=== PATIENT | female | born 1950 | race Caucasian/White ===

== ENCOUNTER → 2017-06-03 | Outpatient (CLI) | payer OTHER ==
[~2017-06-03] MED LIST: ALPR0.5T3 PO; ALPR1 PO; CALC250 PO; CHOL1CAP34 PO; ERGO50000 PO; GLIM4 PO; GLIM4TAB PO; LEVEMIR SQ; LEXA20TA PO; MELA1TAB18 PO; METF-324 PO; METF1000 PO; METO25 PO; METO25TA3 PO; NORC10TA2 PO; PRIS50TA PO; RIVA10 PO; WHEEMIS3; [UNRECOGNIZED DRUG - SUPPLY]
--- NOTE | 2017-06-03 14:17 | RADRPT ---
EXAM DATE/TIME: 06/03/2017 13:52 [facility] COMPARISON: CHEST SINGLE AP, November 06, 2015, 20:42. INDICATIONS : Evaluate for pneumonia, pneumothorax and communicable diseases. Pre-op lung biopsy MEDICAL HISTORY : Cervical Cancer SURGICAL HISTORY : Infusaport ENCOUNTER: Initial ACUITY: 1 day PAIN SCORE: 0/10 LOCATION: chest FINDINGS: Left subclavian Zkukkq-h-Helu with tip near the atrial caval junction. PA and lateral views of the est demonstrate the lungs to be symmetrically aerated without evidence of infiltrate or effusion. Red emonstration of 1.3 cm anterior left upper lobe lung mass, best seen on the lateral view. The cardiom ediastinal contours are unremarkable. Osseous structures are intact. CONCLUSION: 1. No acute cardiopulmonary disease. 2. Redemonstration 1.3 cm anterior left upper lobe lung mass. Luis Khan MD on June 03, 2017 at 14:12 Board Certified Radiologist. This report was verified electronically.
--- NOTE | 2017-06-04 14:48 | EKG ---
Date Performed: 06/03/2017 Time Performed: 12:59:32 PTAGE: 66 years EKG: Sinus rhythm NORMAL ECG PREVIOUS TRACING : 11/08/2015 05.14 DOCTOR: Dae Mooney Interpretating Date/Time 06/04/2017 14:48:07
--- NOTE | 2017-06-09 11:08 | RSPPFT ---
DATE OF PROCEDURE: 06/03/17 COMMENTS: Spirometry demonstrates an FEV1 of 1.1 at 44% of predicted, FVC of 2.5 at 80%, FEV1/FVC ratio at 44% and FEF 25-75 is 15%. Flow volume loops suggest an obstructive pattern. IMPRESSION: 1. Moderate to severe obstructive airways disease.
== END ==
LOC: CPRE 12:42
PROVIDERS: ATTEND Thoracic Surgery (Cardiothoracic Vascular Surgery)
DX: Z01.812 Encounter for preprocedural laboratory examination (principal); Z01.810 Encounter for preprocedural cardiovascular examination; C80.1 Malignant (primary) neoplasm, unspecified; R91.8 Other nonspecific abnormal finding of lung field
CPT/HCPCS: 71046; 93005; 94010

== ENCOUNTER 2017-06-10 05:25 | Inpatient (IN) | payer MEDICARE, OTHER ==
[2017-06-10] VITALS (8 sets, daily range): BP systolic 102–117; BP diastolic 53–81; PULSE 88–105; RESP 16–20; TEMP 97.8–98.3; O2SAT 91–99
[~2017-06-10] VITALS: Ht 167.6 cm; Wt 57.0 kg
[~2017-06-10 05:25] MED LIST changes: -ALPR1 PO; -CALC250 PO; -ERGO50000 PO; -GLIM4 PO; -LEXA20TA PO; -MELA1TAB18 PO; -METF-324 PO; -METO25 PO; -NORC10TA2 PO; -RIVA10 PO; -[UNRECOGNIZED DRUG - SUPPLY]
[2017-06-10] MEDS ORDERED: LACTATED RINGER'S 1000 ML IV PRN (05:45)
[2017-06-10] MEDS ORDERED: SODIUM CHLORID 0.9% 500 ML IV PRN (05:45)
[2017-06-10] MEDS ORDERED: CHLORHEXIDINE GLUCONATE 2 % 1 PACK (2 CLOTHS) TOPICAL PRN (05:45)
[2017-06-10] MEDS ORDERED: POVIDONE IODINE 5% (ANTISEPSIS KIT) 4 APPLICATIONS EACH NARE PRN (05:45)
[2017-06-10] MEDS ORDERED: METOPROLOL TARTRATE 25 MG TAB PO PRN (05:45)
[2017-06-10] MEDS ORDERED: MELA1TAB18 PO (06:10)
[2017-06-10] MEDS ORDERED: INSULIN HUMAN REGULAR 1,000 UNITS/10 ML VIAL ONE (06:19)
[2017-06-10] MEDS: INSULIN HUMAN REGULAR 1,000 UNITS/10 ML VIAL SQ PRN ×2 (06:20→11:09)
[2017-06-10] MEDS ORDERED: BUPIVACAINE LIPOSO PF 1.3% INJ 20 ML, DEXAMETHASONE INJ 4 MG, MORPHINE INJ 8 MG in SODI... ONE (07:00)
[2017-06-10] MEDS ORDERED: fentaNYL CITRATE 250 MCG/5 ML AMP ONE (07:08)
[2017-06-10] MEDS ORDERED: ceFAZolin 2 GM PREMIX 50 ML ONE (07:10)
[2017-06-10] MEDS ORDERED: BUPIVACAINE HCL PF 0.5% 30 ML VIAL ONE (07:10)
[2017-06-10] MEDS ORDERED: BUPIVACAINE LIPOSO PF 1.3% INJ 20 ML, DEXAMETHASONE INJ 4 MG, MORPHINE INJ 8 MG in SODI... IRRIGATION ONE (07:15)
[2017-06-10] MEDS ORDERED: Post-op Orders (for Pharmacy) OTHER ONE (10:30)
[2017-06-10] MEDS ORDERED: SODIUM CHLORIDE 0.9% FLUSH 10 ML FLUSH IV FLUSH PRN (10:30)
[2017-06-10] MEDS ORDERED: MAGNESIUM HYDROXIDE SUSP 30 ML CUP PO PRN (10:30)
[2017-06-10] MEDS ORDERED: ACETAMINOPHEN 325 MG TAB PO PRN (10:30)
[2017-06-10] MEDS ORDERED: MELATONIN 5 MG TAB PO PRN (10:30)
[2017-06-10] MEDS ORDERED: RESP: ALBUTEROL 2.5 MG/3 ML NEB (PRN) NEB (10:30)
[2017-06-10] MEDS ORDERED: INSULIN DETEMIR 100 UNITS/ML VIAL SQ PRN (10:30)
--- NOTE | 2017-06-10 10:36 | PD.OP ---
cc: Rita Bryan MD; Pita Carcamo MD Operative Report Date of Surgery: Jun 10, 2017 Preoperative Diagnosis: (1) Lung mass Postoperative Diagnosis: (1) Lung mass (2) Pleural mass Procedure: Left thoracoscopic exploration Excisional biopsy, left upper lobe mass Biopsy of pleural nodules x 3 Anesthesia: Dr. Kauffman Surgeon: Rita Bryan Daycare Teacher(s): Hattie Hassan, LIZETH Operation and Findings: Specimen: Left upper lobe mass, biopsies of 3 pleural nodules, left upper lobe biopsy along major fissure Drains: 24F Albino Procedure Details After adequate general anesthesia the patient was placed in the right lateral decubitus position and the left chest was prepped and draped in usual manner. An anterior port was positioned at ~6th intercostal space. A port was initially placed posteriorly followed by the camera. Exploration was notable for multiple pleural nodules and very small white visceral pleural spotting throughout the left lung. A small posterior port incision was performed and electrocautery was used to obtain hemostasis and carry the dissection down through the fascia. One of the pleural nodules was biopsied using electrocautery and a biopsy forceps. this was submitted for frozen section. Additionally, a small lung biopsy was performed of the left upper lobe near the fissure to examine the small white lesions noted throughout the lung. Frozen section results show abnormal epithelium within the pleural nodule consistent with a metastatic adenocarcinoma. The left upper lobe biopsy was found to be chronic inflammation, but no evidence of malignancy. Therefore, an additional lateral port was placed and the left upper lobe mass found on PET was isolated. This mass was resected using a surgical stapler. The mass was submitted to Pathology for permanent section. Additional tissue was requested from Dr. Su in Pathology regarding the pleural nodules, so 2 additional nodules underwent biopsy. A 24F right angle chest tube was positioned through the anterior port, and secured with a 0-silk suture. The lung was ventilated and no significant air leaks were found. The subcutaneous tissues of the posterior port was approximated running 2-0 Vicryl suture and the skin was approximated using running 4-0 Monocryl subcuticular stitch. Esparel was injected posteriorly as a rib block adjacent to the 3 small incisions. All sponge and history counts were correct at the close the procedure and the patient was transferred to the CVICU for recovery purposes. Rita Bryan MD Jun 10, 2017 10:36
[2017-06-10] MEDS ORDERED: ERGOCALCIFEROL (VIT D2) 50,000 UNIT CAP PO SCH (11:00)
--- NOTE | 2017-06-10 11:08 | RADRPT ---
EXAM DATE/TIME: 06/10/2017 10:46 [facility] COMPARISON: CHEST SINGLE AP, November 06, 2015, 20:42. INDICATIONS : Post op. MEDICAL HISTORY : Cervical Cancer SURGICAL HISTORY : Infusaport. ENCOUNTER: Initial ACUITY: 1 day PAIN SCORE: Non-responsive. LOCATION: Bilateral chest FINDINGS: A left-sided chest tube is noted with its tip in the apex. No pneumothorax is noted. Left subclavian Ednpew-b-Oobz has its tip at the junction of the superior vena cava and right atrium. The heart is st able. Minimal right basilar atelectasis is noted. No pulmonary vascular congestion is noted. CONCLUSION: Minimal right basilar atelectasis. No pneumothorax status post placement of the left chest. Juan Ramon Paulson MD on June 10, 2017 at 11:04 Board Certified Radiologist. This report was verified electronically.
[2017-06-10] MEDS ORDERED: LACTATED RINGER'S 1000 ML INJ 1,000 ML IV ONE (12:00)
[2017-06-10] MEDS ORDERED: ONDANSETRON HCL 4 MG/2 ML VIAL IV ONE (12:00)
[2017-06-10] MEDS ORDERED: PROPOFOL 200 MG/20 ML AMP IV ONE (12:00)
[2017-06-10] MEDS ORDERED: NORMOSOL R INJ 2,000 ML IV ONE (12:00)
[2017-06-10] MEDS ORDERED: ROCURONIUM INJ 50 MG/5 ML SYRINGE IV PUSH ONE (12:00)
[2017-06-10] MEDS ORDERED: SODIUM CHLORID 0.9% 500 ML INJ 500 ML IV ONE (12:00)
[2017-06-10] MEDS ORDERED: PHENYLEPH/NS 1000 MCG/10 ML SYR IV ONE (12:00)
[2017-06-10] MEDS ORDERED: *morphine SULFATE 8 MG/ML PERIprocedure ONLY ONE (12:11)
[2017-06-10] MEDS ORDERED: INSULIN HUMAN REGULAR 1,000 UNITS/10 ML VIAL SQ ONE (13:45)
[2017-06-10] MEDS ORDERED: DO NOT ADM ANY ANTICOAGULANT DRUGS PRN (13:45)
--- NOTE | 2017-06-10 14:38 | PD.CAR.PN ---
CVT Progress Note Subjective/Hospital Course: 66/ female with history of left lung mass and h/o stage 3B cervical cancer/ 4 yrs ago in remission , presented to Dr Carcamo having developed a new left lung mass PMH: cervical cancer, depression, diabetes mellitus / hx of tobacco abuse CT pet scan : hypermetabolic mass left upper lobe surgery: 06/10 Left thoracoscopic exploration Excisional biopsy, left upper lobe mass Biopsy of pleural nodules x 3 Objective: Vital Signs Date Time Temp Pulse Resp B/P (MAP) Pulse Ox O2 Delivery O2 Flow Rate FiO2 06/10/17 13:00 93 16 100/54 (69) 95 Nasal Cannula 2 06/10/17 12:30 97.8 95 16 93/58 (70) 94 Nasal Cannula 2 06/10/17 12:16 15 06/10/17 12:15 96 16 101/55 (70) 94 Nasal Cannula 2 06/10/17 12:00 97.0 97 16 112/59 (76) 98 Nasal Cannula 3 06/10/17 11:45 94 16 108/60 (76) 97 Nasal Cannula 3 06/10/17 11:30 95.9 95 16 110/62 (78) 95 Nasal Cannula 3 06/10/17 11:15 92 16 112/58 (76) 94 Nasal Cannula 3 06/10/17 11:00 88 17 111/56 (74) 95 Nasal Cannula 3 06/10/17 10:45 95.8 87 20 126/59 (81) 100 Nasal Cannula 4 142/51 (81) 06/10/17 06:11 97.8 110 20 134/69 (90) 95 Denae Garcia Jun 10, 2017 14:38
[2017-06-10] MEDS: KETOROLAC TROMETHAMINE 30 MG/ML (IVP) VIAL IV PUSH SCH ×2 (14:52→16:57)
[2017-06-10] MEDS: GLIMEPIRIDE 4 MG TAB PO SCH (16:56)
[2017-06-10] MEDS: ONDANSETRON HCL 4 MG/2 ML VIAL IV PUSH PRN (17:59)
[2017-06-10] MEDS: metFORMIN HCL 500 MG TAB PO SCH (18:02)
[2017-06-10] MEDS: ALPRAZolam 0.5 MG TAB PO SCH (19:00)
[2017-06-10] MEDS: RESP: ALBUTEROL 2.5 MG/3 ML NEB (SCH) NEB (20:42)
[2017-06-10] MEDS: oxyCODONE/ACETAMINOPHEN 5 MG/325 MG TAB PO PRN (21:05)
[2017-06-10] MEDS: PANTOPRAZOLE SOD 40 MG DELAYED RELEASE TAB PO SCH (21:05)
[2017-06-10] MEDS: METOPROLOL TARTRATE 25 MG TAB PO SCH (21:05)
[2017-06-10] MEDS: DOCUSATE CALCIUM 240 MG CAP PO SCH (21:05)
[2017-06-10] MEDS: SODIUM CHLORIDE 0.9% FLUSH 10 ML FLUSH IV FLUSH SCH (21:06)
[2017-06-11] VITALS (28 sets, daily range): BP systolic 102–146; BP diastolic 55–81; PULSE 95–124; RESP 20–21; TEMP 98–98.9; O2SAT 92–98
[2017-06-11] MEDS: ONDANSETRON HCL 4 MG/2 ML VIAL IV PUSH PRN ×4 (00:08→18:40)
[2017-06-11] MEDS: KETOROLAC TROMETHAMINE 30 MG/ML (IVP) VIAL IV PUSH SCH ×2 (00:08→06:26)
[2017-06-11] MEDS: ALPRAZolam 0.5 MG TAB PO SCH ×3 (03:33→18:07)
[2017-06-11] MEDS: RESP: ALBUTEROL 2.5 MG/3 ML NEB (SCH) NEB ×4 (04:09→20:53)
[2017-06-11 05:09] LABS: AUTOMATED NEUTROPHIL # 7.9 TH/MM3 (1.8-7.7); BASOPHIL % 0.2 % (0.0-2.0); EOSINOPHIL % 0.4 % (0.0-4.0); HEMATOCRIT 35.7 % (35.0-46.0); HEMOGLOBIN 11.9 GM/DL (11.6-15.3); LYMPH % 12.1 % (9.0-44.0); LYMPHOCYTE # 1.2 TH/MM3 (1.0-4.8); MEAN CELL VOLUME 86.7 FL (80.0-100.0); MEAN CORPUSCULAR HEMOGLOBIN 28.9 PG (27.0-34.0); MEAN CORPUSCULAR HGB CONC 33.3 % (32.0-36.0); MEAN PLATELET VOLUME 7.5 FL (7.0-11.0); MONO % 6.3 % (0.0-8.0); MONOCYTE # 0.6 TH/MM3 (0-0.9); PLATELET COUNT 327 TH/MM3 (150-450); RED BLOOD COUNT 4.12 MIL/MM3 (4.00-5.30); RED CELL DISTRIBUTION WIDTH 12.9 % (11.6-17.2); WHITE BLOOD COUNT 9.7 TH/MM3 (4.0-11.0)
--- NOTE | 2017-06-11 05:14 | RADRPT ---
EXAM DATE/TIME: 06/11/2017 03:25 [facility] COMPARISON: CHEST SINGLE AP, June 10, 2017, 10:46. INDICATIONS : S/p thoracotomy. MEDICAL HISTORY : Cervical Cancer SURGICAL HISTORY : Infusaport ENCOUNTER: Subsequent ACUITY: 2 days PAIN SCORE: 4/10 LOCATION: Bilateral chest FINDINGS: A single view of the chest demonstrates the lungs to be symmetrically aerated without evidence of mas s, infiltrate or effusion. The cardiomediastinal contours are unremarkable. Left thoracostomy tube. Left-sided Port-A-Cath. Osseous structures are intact. CONCLUSION: Clear lungs. No pneumothorax. Chance Su Jr., MD on June 11, 2017 at 5:13 Board Certified Radiologist. This report was verified electronically.
[2017-06-11 05:16] LABS: BICARBONATE 29.2 MEQ/L (21.0-32.0); CALCIUM 8.1 MG/DL (8.5-10.1); CREATININE 0.61 MG/DL (0.50-1.00)
[2017-06-11] MEDS: GLIMEPIRIDE 4 MG TAB PO SCH (06:26)
[2017-06-11] MEDS: oxyCODONE/ACETAMINOPHEN 5 MG/325 MG TAB PO PRN ×3 (06:48→18:40)
[2017-06-11] MEDS: METOPROLOL TARTRATE 25 MG TAB PO SCH ×2 (09:00→21:14)
[2017-06-11] MEDS ORDERED: DESVENLAFAXINE 50 MG PO SCH (09:00)
[2017-06-11] MEDS: SODIUM CHLORIDE 0.9% FLUSH 10 ML FLUSH IV FLUSH SCH ×2 (09:01→21:14)
[2017-06-11] MEDS: metFORMIN HCL 500 MG TAB PO SCH (09:02)
--- NOTE | 2017-06-11 15:27 | PD.CAR.PN ---
CVT Progress Note Subjective/Hospital Course: 66/ female with history of left lung mass and h/o stage 3B cervical cancer/ 4 yrs ago in remission , presented to Dr Carcamo having developed a new left lung mass PMH: cervical cancer, depression, diabetes mellitus / hx of tobacco abuse CT pet scan : hypermetabolic mass left upper lobe surgery: 06/10 Left thoracoscopic exploration Excisional biopsy, left upper lobe mass Biopsy of pleural nodules x 3 06/11 pt had significant nausea last pm decreased urine output 3 will add low rate IV fluids x 8 hrs pain control chest tube to water seal Objective: GENERAL: A&O x 3 SKIN: Warm and dry. incision intact left chest wall / HEAD: Normocephalic. EYES: No scleral icterus. No injection or drainage. NECK: Supple, trachea midline. No JVD or lymphadenopathy. CARDIOVASCULAR: Regular rate and rhythm without murmurs, gallops, or rubs. RESPIRATORY: Breath sounds equal bilaterally. No accessory muscle use. chest tube now to water seal GASTROINTESTINAL: Abdomen soft, non-tender, nondistended. MUSCULOSKELETAL: No cyanosis, or edema. BACK: Nontender without obvious deformity. No CVA tenderness. Vital Signs Date Time Temp Pulse Resp B/P (MAP) Pulse Ox O2 Delivery O2 Flow Rate FiO2 06/11/17 14:00 102 06/11/17 13:00 108 06/11/17 12:00 120 06/11/17 11:00 98.0 107 20 132/62 (85) 94 06/11/17 11:00 102 06/11/17 10:55 93 21 06/11/17 10:00 124 06/11/17 09:00 104 06/11/17 08:00 108 06/11/17 07:15 96 Room Air 06/11/17 07:15 98.9 112 20 102/58 (73) 96 06/11/17 07:15 114 06/11/17 06:13 107 06/11/17 05:50 113 06/11/17 04:25 106 06/11/17 04:14 98.2 106 21 146/67 (93) 92 06/11/17 03:56 98.2 96 20 117/81 (93) 92 06/11/17 03:16 97 06/11/17 02:49 95 06/11/17 01:32 98 06/11/17 00:00 99 06/10/17 23:45 95 06/10/17 23:40 98.2 96 20 117/81 (93) 92 06/10/17 22:50 105 06/10/17 21:50 102 06/10/17 20:42 98 06/10/17 20:42 91 21 06/10/17 19:40 98 06/10/17 19:40 Room Air 06/10/17 19:40 98.3 88 20 102/53 (69) 93 06/10/17 18:15 98 06/10/17 16:19 97.8 93 16 110/60 (77) 99 Arterial Line 06/10/17 16:19 99 Room Air 06/10/17 16:00 97.7 95 16 94/51 (65) 96 Nasal Cannula 2 Labs: Laboratory Tests Test 06/11/17 04:31 White Blood Count 9.7 TH/MM3 (4.0-11.0) Red Blood Count 4.12 MIL/MM3 (4.00-5.30) Hemoglobin 11.9 GM/DL (11.6-15.3) Hematocrit 35.7 % (35.0-46.0) Mean Corpuscular Volume 86.7 FL (80.0-100.0) Mean Corpuscular Hemoglobin 28.9 PG (27.0-34.0) Mean Corpuscular Hemoglobin Concent 33.3 % (32.0-36.0) Red Cell Distribution Width 12.9 % (11.6-17.2) Platelet Count 327 TH/MM3 (150-450) Mean Platelet Volume 7.5 FL (7.0-11.0) Neutrophils (%) (Auto) 81.0 % (16.0-70.0) Lymphocytes (%) (Auto) 12.1 % (9.0-44.0) Monocytes (%) (Auto) 6.3 % (0.0-8.0) Eosinophils (%) (Auto) 0.4 % (0.0-4.0) Basophils (%) (Auto) 0.2 % (0.0-2.0) Neutrophils # (Auto) 7.9 TH/MM3 (1.8-7.7) Lymphocytes # (Auto) 1.2 TH/MM3 (1.0-4.8) Monocytes # (Auto) 0.6 TH/MM3 (0-0.9) Eosinophils # (Auto) 0.0 TH/MM3 (0-0.4) Basophils # (Auto) 0.0 TH/MM3 (0-0.2) CBC Comment DIFF FINAL Differential Comment Blood Urea Nitrogen 15 MG/DL (7-18) Creatinine 0.61 MG/DL (0.50-1.00) Random Glucose 156 MG/DL (74-106) Calcium Level 8.1 MG/DL (8.5-10.1) Sodium Level 138 MEQ/L (136-145) Potassium Level 3.5 MEQ/L (3.5-5.1) Chloride Level 99 MEQ/L (98-107) Carbon Dioxide Level 29.2 MEQ/L (21.0-32.0) Anion Gap 10 MEQ/L (5-15) Estimat Glomerular Filtration Rate 99 ML/MIN (>89) Result Diagram: 06/11/17 0431 06/11/17 0431 Telemetry: NSR (1) Lung mass Plan: path pending (2) Pleural mass (3) Diabetes Plan: hold po meds add sliding scale (4) s/p thoracoscopy Plan: pulm toileting OOB, ambulate IV fluids x 8 hrs antiemetics pain control Denae Garcia Jun 11, 2017 15:27
--- NOTE | 2017-06-11 15:29 | HHI.DS ---
Discharge Summary Admission Date Jun 10, 2017 at 05:25 Discharge Date: Jun 11, 2017 Admitting Diagnosis Left thoracoscopic exploration Excisional biopsy, left upper lobe mass Biopsy of pleural nodules x 3 (1) s/p thoracoscopy Diagnosis: Secondary (2) Diabetes Diagnosis: Principal ICD Codes: E11.9 - Diabetes mellitus Status: Chronic (3) Pleural mass Diagnosis: Principal ICD Codes: J94.9 - Pleural condition, unspecified (4) Lung mass Diagnosis: Principal ICD Codes: R91.8 - Other nonspecific abnormal finding of lung field Procedures 06/10 Left thoracoscopic exploration Excisional biopsy, left upper lobe mass Biopsy of pleural nodules x 3 CBC/BMP: 06/11/17 0431 06/11/17 0431 Significant Findings Laboratory Tests Test 06/11/17 04:31 Neutrophils (%) (Auto) 81.0 % (16.0-70.0) Neutrophils # (Auto) 7.9 TH/MM3 (1.8-7.7) Random Glucose 156 MG/DL (74-106) Calcium Level 8.1 MG/DL (8.5-10.1) Denae Garcia Jun 11, 2017 15:29
--- NOTE | 2017-06-11 15:31 | HHI.FF ---
Face to Face Verification Diagnosis: (1) Lung mass (2) Pleural mass (3) s/p thoracoscopy (4) Diabetes Home Health Nursing Order: Signs/symptoms of disease process Diabetic education Medication education-adverse effect Wound care and dressing changes Nursing assessment with vital signs Instructions: Thoracic Surgery patients Mandatory frequency Assess and evaluation, 2-3 x a week for one week Initial visit 1. Review post chest surgery instructions chest precautions, Activity, Elastic hose, Incision care, Driving, Incentive spirometry, Smoking, [place] , Work and other) 2. Need Betadine to paint incision 3. Medication reconciliation 4. Importance of follow up care/ check on appointments 5. Make calendar record temperature daily 6. When to call Home nurse, review instructions, phone list 7. Incentive Spirometry, demonstration Visit 1- Begin discharge instruction for patient family and/ or caregiver using teach back method- 1. Signs and symptoms of infection 2. Disease characteristics 3. Medicines and side effects 4. Foods and nutrition/ appetite 5. Infection control/ hand washing/ hygiene Visit 2- Continue teaching 1. Discharge instructions- include additional information on smoking cessation , Visit 3- Continue teaching- 1. Cough and deep breathing, incision monitoring. For any questions please call : / [facility] Cardiothoracic Surgery Incentive spirometry Q1 hr x 10, while awake, also use acapella device hourly whole awake chest wall Precautions: NO pushing or pulling, ( pt must use chest pillow to support chest with all activities and with coughing Daily incision care: ok to shower daily, no tub bath. Wash all incisions with liquid dial soap, clean wash cloth to each site, rinse and pat dry. Observe for any signs of infection, such as drainage which is dark yellow, sarabia, green or foul smelling. Immediately report to the surgeon any drainage from the chest incision, or legs, and for any abnormal drainage from the chest tube sites. Notify surgeon if any temp >101.5 degrees F. When specialty dressing removed/ or if you do not have one, continue to shower daily as above, then rinse and pat incision dry and paint with betadine daily x 5 days. Allow steri strips to fall off if you have any. Avoid lotions, creams, salves, oils, etc. for the first month For Dr. Bryan patients , please obtain , PA & Lat CXR in 2 weeks, results to Dr. Bryan ( prescription will be given) ( ) (Tele: [phone]) , F/U appointment: as per MO instructions: PCP in 2 weeks, CV surgeon 2 weeks, oncologist 3-4 weeks For any questions regarding incisions/ dressing / meds / post op care or above Symptoms, Friday 8am-5pm Heart & Vascular Surgery Office ( Dr. Rosas & Dr. Bryan), After Hours / Nights (5pm -8am) Weekends and Holidays Please call [facility] Cardiac Inter[facility] Care Unit (CIC) Charge Nurse I have seen patient Margaret Tony on 06/11/17. My clinical findings support the need for the requested home health care services because: Patient has SOB Deconditioned w/ increased weakness I certify that my clinical findings support that this patient is homebound because: Post-op weakness Denae Garcia Jun 11, 2017 15:31
--- NOTE | 2017-06-11 15:36 | PD.CAR.PN ---
CVT Progress Note Subjective/Hospital Course: 66/ female with history of left lung mass and h/o stage 3B cervical cancer/ 4 yrs ago in remission , presented to Dr Carcamo having developed a new left lung mass PMH: cervical cancer, depression, diabetes mellitus / hx of tobacco abuse CT pet scan : hypermetabolic mass left upper lobe surgery: 06/10 Left thoracoscopic exploration Excisional biopsy, left upper lobe mass Biopsy of pleural nodules x 3 06/11 pt had significant nausea last pm decreased urine output 3 will add low rate IV fluids x 8 hrs pain control chest tube to water seal Objective: Vital Signs Date Time Temp Pulse Resp B/P (MAP) Pulse Ox O2 Delivery O2 Flow Rate FiO2 06/11/17 14:00 102 06/11/17 13:00 108 06/11/17 12:00 120 06/11/17 11:00 98.0 107 20 132/62 (85) 94 06/11/17 11:00 102 06/11/17 10:55 93 21 06/11/17 10:00 124 06/11/17 09:00 104 06/11/17 08:00 108 06/11/17 07:15 96 Room Air 06/11/17 07:15 98.9 112 20 102/58 (73) 96 06/11/17 07:15 114 06/11/17 06:13 107 06/11/17 05:50 113 06/11/17 04:25 106 06/11/17 04:14 98.2 106 21 146/67 (93) 92 06/11/17 03:56 98.2 96 20 117/81 (93) 92 06/11/17 03:16 97 06/11/17 02:49 95 06/11/17 01:32 98 06/11/17 00:00 99 06/10/17 23:45 95 06/10/17 23:40 98.2 96 20 117/81 (93) 92 06/10/17 22:50 105 06/10/17 21:50 102 06/10/17 20:42 98 06/10/17 20:42 91 21 06/10/17 19:40 98 06/10/17 19:40 Room Air 06/10/17 19:40 98.3 88 20 102/53 (69) 93 06/10/17 18:15 98 06/10/17 16:19 97.8 93 16 110/60 (77) 99 Arterial Line 06/10/17 16:19 99 Room Air 06/10/17 16:00 97.7 95 16 94/51 (65) 96 Nasal Cannula 2 Labs: Laboratory Tests Test 06/11/17 04:31 White Blood Count 9.7 TH/MM3 (4.0-11.0) Red Blood Count 4.12 MIL/MM3 (4.00-5.30) Hemoglobin 11.9 GM/DL (11.6-15.3) Hematocrit 35.7 % (35.0-46.0) Mean Corpuscular Volume 86.7 FL (80.0-100.0) Mean Corpuscular Hemoglobin 28.9 PG (27.0-34.0) Mean Corpuscular Hemoglobin Concent 33.3 % (32.0-36.0) Red Cell Distribution Width 12.9 % (11.6-17.2) Platelet Count 327 TH/MM3 (150-450) Mean Platelet Volume 7.5 FL (7.0-11.0) Neutrophils (%) (Auto) 81.0 % (16.0-70.0) Lymphocytes (%) (Auto) 12.1 % (9.0-44.0) Monocytes (%) (Auto) 6.3 % (0.0-8.0) Eosinophils (%) (Auto) 0.4 % (0.0-4.0) Basophils (%) (Auto) 0.2 % (0.0-2.0) Neutrophils # (Auto) 7.9 TH/MM3 (1.8-7.7) Lymphocytes # (Auto) 1.2 TH/MM3 (1.0-4.8) Monocytes # (Auto) 0.6 TH/MM3 (0-0.9) Eosinophils # (Auto) 0.0 TH/MM3 (0-0.4) Basophils # (Auto) 0.0 TH/MM3 (0-0.2) CBC Comment DIFF FINAL Differential Comment Blood Urea Nitrogen 15 MG/DL (7-18) Creatinine 0.61 MG/DL (0.50-1.00) Random Glucose 156 MG/DL (74-106) Calcium Level 8.1 MG/DL (8.5-10.1) Sodium Level 138 MEQ/L (136-145) Potassium Level 3.5 MEQ/L (3.5-5.1) Chloride Level 99 MEQ/L (98-107) Carbon Dioxide Level 29.2 MEQ/L (21.0-32.0) Anion Gap 10 MEQ/L (5-15) Estimat Glomerular Filtration Rate 99 ML/MIN (>89) Result Diagram: 06/11/17 04306/11/17 043 (1) Lung mass Plan: path pending (2) Pleural mass (3) Diabetes Plan: hold po meds add sliding scale (4) s/p thoracoscopy Plan: pulm toileting OOB, ambulate IV fluids x 8 hrs antiemetics pain control Denae Garcia Jun 11, 2017 15:36
[2017-06-11] MEDS ORDERED: DEXTROSE 50% IN WATER 50 ML VIAL(D50) IV PUSH PRN (15:45)
[2017-06-11] MEDS ORDERED: GLUCAGON 1 MG/ML VIAL OTHER PRN (15:45)
[2017-06-11] MEDS ORDERED: SODIUM CHLOR 0.9% 1000 ML INJ 1,000 ML IV SCH (15:45)
[2017-06-11] MEDS: INSULIN ASPART SUPPLEMENTAL SCALE SQ SCH ×2 (18:07→21:00)
[2017-06-11] MEDS: METOCLOPRAMIDE HCL 10 MG/2 ML VIAL IV PUSH PRN (19:37)
[2017-06-11] MEDS: PANTOPRAZOLE SOD 40 MG DELAYED RELEASE TAB PO SCH (21:13)
[2017-06-11] MEDS: DOCUSATE CALCIUM 240 MG CAP PO SCH (21:14)
[2017-06-12] VITALS (26 sets, daily range): BP systolic 94–160; BP diastolic 50–75; PULSE 96–113; RESP 18–20; TEMP 97.9–98.6; O2SAT 93–98
[2017-06-12] MEDS: ALPRAZolam 0.5 MG TAB PO SCH ×3 (02:25→18:07)
[2017-06-12] MEDS: MAGNESIUM SULFAT 1 GM PREMIX 100 ML x2 bags IV SCH ×2 (02:26→03:31)
[2017-06-12] MEDS: RESP: ALBUTEROL 2.5 MG/3 ML NEB (SCH) NEB ×4 (04:31→21:25)
[2017-06-12 04:59] LABS: BICARBONATE 28.8 MEQ/L (21.0-32.0); CALCIUM 8.1 MG/DL (8.5-10.1); CREATININE 0.44 MG/DL (0.50-1.00)
[2017-06-12] MEDS: INSULIN ASPART SUPPLEMENTAL SCALE SQ SCH ×4 (08:00→21:00)
[2017-06-12] MEDS: METOCLOPRAMIDE HCL 10 MG/2 ML VIAL IV PUSH PRN (08:31)
[2017-06-12] MEDS: oxyCODONE/ACETAMINOPHEN 5 MG/325 MG TAB PO PRN (08:32)
[2017-06-12] MEDS: SODIUM CHLORIDE 0.9% FLUSH 10 ML FLUSH IV FLUSH SCH ×2 (08:32→20:55)
[2017-06-12] MEDS: METOPROLOL TARTRATE 25 MG TAB PO SCH ×3 (08:32→20:55)
[2017-06-12] MEDS: POTASSIUM CHLOR 20 MEQ PREMIX 100 ML IV PRN (08:32)
--- NOTE | 2017-06-12 09:57 | PD.CAR.PN ---
CVT Progress Note Subjective/Hospital Course: 66/ female with history of left lung mass and h/o stage 3B cervical cancer/ 4 yrs ago in remission , presented to Dr Carcamo having developed a new left lung mass PMH: cervical cancer, depression, diabetes mellitus / hx of tobacco abuse CT pet scan : hypermetabolic mass left upper lobe surgery: 06/10 Left thoracoscopic exploration Excisional biopsy, left upper lobe mass Biopsy of pleural nodules x 3 06/11 pt had significant nausea last pm decreased urine output 3 will add low rate IV fluids x 8 hrs pain control chest tube to water seal 06/12 had short run afib/ abberancy mag sulfate given , receiving K+ IV and po no further nausea K+ level 3.1 chest tube removed without difficulty Objective: GENERAL: A&O x 3 SKIN: Warm and dry. incision intact left postero lateral chest wall / HEAD: Normocephalic. EYES: No scleral icterus. No injection or drainage. NECK: Supple, trachea midline. No JVD or lymphadenopathy. CARDIOVASCULAR: Regular rate and rhythm without murmurs, gallops, or rubs. RESPIRATORY: Breath sounds equal bilaterally. No accessory muscle use. chest tube removed without difficulty GASTROINTESTINAL: Abdomen soft, non-tender, nondistended. MUSCULOSKELETAL: No cyanosis, or edema. BACK: Nontender without obvious deformity. No CVA tenderness. Vital Signs Date Time Temp Pulse Resp B/P (MAP) Pulse Ox O2 Delivery O2 Flow Rate FiO2 06/12/17 09:22 95 21 06/12/17 09:00 108 06/12/17 08:00 96 06/12/17 07:30 98.6 104 20 94/50 (65) 95 06/12/17 07:30 95 Room Air 06/12/17 07:30 102 06/12/17 06:50 102 06/12/17 05:04 106 06/12/17 04:18 102 06/12/17 03:13 97.9 113 20 112/60 (77) 93 06/12/17 03:13 107 06/12/17 02:20 110 06/12/17 01:11 104 06/12/17 00:49 100 06/11/17 23:50 107 06/11/17 22:27 110 06/11/17 21:00 114 06/11/17 20:52 94 21 06/11/17 20:40 110 06/11/17 19:30 105 06/11/17 19:30 Room Air 06/11/17 19:30 98.4 110 21 125/67 (86) 95 06/11/17 18:00 109 06/11/17 17:00 110 06/11/17 16:00 115 06/11/17 15:00 98.9 111 20 118/55 (76) 98 06/11/17 15:00 107 06/11/17 14:00 102 06/11/17 13:00 108 06/11/17 12:00 120 06/11/17 11:00 98.0 107 20 132/62 (85) 94 06/11/17 11:00 102 06/11/17 10:55 93 21 06/11/17 10:00 124 Labs: Laboratory Tests Test 06/12/17 04:02 Blood Urea Nitrogen 8 MG/DL (7-18) Creatinine 0.44 MG/DL (0.50-1.00) Random Glucose 206 MG/DL (74-106) Calcium Level 8.1 MG/DL (8.5-10.1) Sodium Level 140 MEQ/L (136-145) Potassium Level 3.1 MEQ/L (3.5-5.1) Chloride Level 100 MEQ/L (98-107) Carbon Dioxide Level 28.8 MEQ/L (21.0-32.0) Anion Gap 11 MEQ/L (5-15) Estimat Glomerular Filtration Rate 144 ML/MIN (>89) Result Diagram: 06/11/17 0431 06/12/17 0402 (1) Lung mass Plan: path pending (2) Pleural mass (3) Diabetes Plan: hold po meds add sliding scale (4) s/p thoracoscopy Plan: pulm toileting OOB, ambulate replace electrolytes nausea resolved short burst afib with abnormal electrolytes now receiving Mag and K+ pain control Denae Garcia Jun 12, 2017 09:57
[2017-06-12 09:58] LABS: MAGNESIUM 2.5 MG/DL (1.5-2.5); PHOSPHORUS 2.3 MG/DL (2.5-4.9)
[2017-06-12] MEDS: POTASSIUM PHOSPHATE MONOBASIC 500 MG TAB PO SCH ×2 (10:15→20:55)
[2017-06-12] MEDS: POTASSIUM CHLORIDE 25 MEQ EFFERVESCENT TAB PO SCH ×2 (10:35→16:00)
[2017-06-12] MEDS ORDERED: PILL SPLITTER OTHER PRN (15:15)
[2017-06-12] MEDS: GLIMEPIRIDE 4 MG TAB PO SCH (16:00)
[2017-06-12] MEDS: metFORMIN HCL 500 MG TAB PO SCH (18:08)
[2017-06-12] MEDS: DOCUSATE CALCIUM 240 MG CAP PO SCH (20:54)
[2017-06-12] MEDS: PANTOPRAZOLE SOD 40 MG DELAYED RELEASE TAB PO SCH (20:54)
[2017-06-13] VITALS (11 sets, daily range): BP systolic 102–134; BP diastolic 56–63; PULSE 62–104; RESP 16; TEMP 97.6–98.1; O2SAT 96–98
[2017-06-13] MEDS: ALPRAZolam 0.5 MG TAB PO SCH ×2 (02:33→10:06)
[2017-06-13] MEDS: RESP: ALBUTEROL 2.5 MG/3 ML NEB (SCH) NEB ×2 (03:58→09:20)
[2017-06-13 05:08] LABS: BICARBONATE 26.2 MEQ/L (21.0-32.0); CALCIUM 8.6 MG/DL (8.5-10.1); CREATININE 0.45 MG/DL (0.50-1.00); MAGNESIUM 1.8 MG/DL (1.5-2.5)
--- NOTE | 2017-06-13 05:21 | RADRPT ---
EXAM DATE/TIME: 06/13/2017 04:31 [facility] COMPARISON: CHEST SINGLE AP, June 11, 2017, 3:25. INDICATIONS : Pneumothorax. MEDICAL HISTORY : Cervical Cancer SURGICAL HISTORY : Infusaport ENCOUNTER: Subsequent ACUITY: 1 week PAIN SCORE: 0/10 LOCATION: Bilateral chest FINDINGS: A single view of the chest demonstrates interval removal of the left-sided thoracostomy tube without pneumothorax. Lungs are now clear. Left subclavian Pxbapg-c-Bgeh catheter is unchanged with the tip p rojecting over the central venous system. Heart size is normal. Osseous structures are intact. CONCLUSION: 1. Interval removal left-sided thoracostomy tube without pneumothorax. 2. Lungs are clear. Keith Dailey MD on June 13, 2017 at 5:18 Board Certified Radiologist. This report was verified electronically.
[2017-06-13] MEDS: POTASSIUM CHLOR 20 MEQ PREMIX 100 ML IV PRN (05:23)
[2017-06-13] MEDS: POTASSIUM PHOSPHATE MONOBASIC 500 MG TAB PO SCH (07:59)
[2017-06-13] MEDS: GLIMEPIRIDE 4 MG TAB PO SCH (07:59)
[2017-06-13] MEDS: METOPROLOL TARTRATE 25 MG TAB PO SCH ×2 (07:59→08:04)
[2017-06-13] MEDS: metFORMIN HCL 500 MG TAB PO SCH (08:00)
[2017-06-13] MEDS: SODIUM CHLORIDE 0.9% FLUSH 10 ML FLUSH IV FLUSH SCH (08:00)
[2017-06-13] MEDS: INSULIN ASPART SUPPLEMENTAL SCALE SQ SCH (08:03)
[2017-06-13] MEDS ORDERED: POTASSIUM CHLORIDE 20 MEQ CONTROLLED RELEASE TAB PO ONE (09:30)
[2017-06-13] MEDS ORDERED: MAGNESIUM SULFATE 1 GM PREMIX 100 ML IV ONE (10:00)
--- NOTE | 2017-06-13 11:49 | HHI.DS ---
Discharge Summary Admission Date Jun 10, 2017 at 05:25 Admitting Diagnosis (1) s/p thoracoscopy Diagnosis: Secondary (2) Diabetes Diagnosis: Principal ICD Codes: E11.9 - Diabetes mellitus Status: Chronic (3) Pleural mass Diagnosis: Principal ICD Codes: J94.9 - Pleural condition, unspecified (4) Lung mass Diagnosis: Principal ICD Codes: R91.8 - Other nonspecific abnormal finding of lung field Procedures 06/10 Left thoracoscopic exploration Excisional biopsy, left upper lobe mass Biopsy of pleural nodules x 3 Brief History surgery: 06/10 Left thoracoscopic exploration Excisional biopsy, left upper lobe mass Biopsy of pleural nodules x 3 06/11 pt had significant nausea last pm decreased urine output 3 will add low rate IV fluids x 8 hrs pain control chest tube to water seal 06/12 had short run afib/ abberancy mag sulfate given , receiving K+ IV and po no further nausea K+ level 3.1 chest tube removed without difficulty 06/13 no further afib, NSR with occasional pac additional K+ and Mag given today stable for dc CXR no ptx CBC/BMP: 06/11/17 0431 06/13/17 0346 Significant Findings Laboratory Tests Test 06/11/17 04:31 06/12/17 04:02 06/13/17 03:46 Neutrophils (%) (Auto) 81.0 % (16.0-70.0) Neutrophils # (Auto) 7.9 TH/MM3 (1.8-7.7) Random Glucose 156 MG/DL (74-106) 206 MG/DL (74-106) 190 MG/DL (74-106) Calcium Level 8.1 MG/DL (8.5-10.1) 8.1 MG/DL (8.5-10.1) Creatinine 0.44 MG/DL (0.50-1.00) 0.45 MG/DL (0.50-1.00) Potassium Level 3.1 MEQ/L (3.5-5.1) Phosphorus Level 2.3 MG/DL (2.5-4.9) Imaging Last Impressions Chest X-Ray 06/13/17 0600 Signed Impressions: Service Date/Time: Tuesday, June 13, 2017 04:31 - CONCLUSION: 1. Interval removal left-sided thoracostomy tube without pneumothorax. 2. Lungs are clear. Keith Dailey MD PE at Discharge GENERAL: A&O x 3 SKIN: Warm and dry. dressing to left lateral chest wall , 2 small incisions left postero lateral chest wall HEAD: Normocephalic. EYES: No scleral icterus. No injection or drainage. NECK: Supple, trachea midline. No JVD or lymphadenopathy. CARDIOVASCULAR: Regular rate and rhythm without murmurs, gallops, or rubs. RESPIRATORY: Breath sounds equal bilaterally. No accessory muscle use. GASTROINTESTINAL: Abdomen soft, non-tender, nondistended. MUSCULOSKELETAL: No cyanosis, or edema. BACK: Nontender without obvious deformity. No CVA tenderness. Hospital Course urgery: 06/10 Left thoracoscopic exploration Excisional biopsy, left upper lobe mass Biopsy of pleural nodules x 3 06/11 pt had significant nausea last pm decreased urine output 3 will add low rate IV fluids x 8 hrs pain control chest tube to water seal 06/12 had short run afib/ abberancy mag sulfate given , receiving K+ IV and po no further nausea K+ level 3.1 chest tube removed without difficulty 06/13 stable for dc home Pt Condition on Discharge: Good Discharge Disposition: Disch w/ Home Health Serv Discharge Instructions DIET: Follow Instructions for: As Tolerated, No Restrictions Activities you can perform: Full Weight Bearing, Shower Only-No Bath Activities to avoid: Strenuous Activity, Driving Additional Activity Instructio: no lifting > 8 lbs or gallon of milk Follow up Referrals: Oncology - 4 Weeks with Pita Carcamo MD PCP Follow-up with Betsy Galarza Jr, Md Surgical - 2 Weeks with Denae Garcia Jacqueline R. ARNP Jun 13, 2017 11:49
[2017-06-13] MEDS ORDERED: OXYC1TAB63 PO (11:51)
== END 2017-06-13 12:48 | disposition home health service (06) | DRG 830 ==
LOC: HSDI 05:25 → HCPC 16:25
PROVIDERS: ADMIT Thoracic Surgery (Cardiothoracic Vascular Surgery); ATTEND Thoracic Surgery (Cardiothoracic Vascular Surgery)
PROC: 0BBP4ZX Excision of Left Pleura, Percutaneous Endoscopic Approach, Diagnostic (ICD-10-PCS; 2017-06-10)
PROC: 0BBG4ZX Excision of Left Upper Lung Lobe, Percutaneous Endoscopic Approach, Diagnostic (ICD-10-PCS; principal; 2017-06-10 07:39)
DX: C79.89 Secondary malignant neoplasm of other specified sites (principal); E87.8 Other disorders of electrolyte and fluid balance, not elsewhere classified; I48.91 Unspecified atrial fibrillation; R91.8 Other nonspecific abnormal finding of lung field; E11.9 Type 2 diabetes mellitus without complications; Z79.84 Long term (current) use of oral hypoglycemic drugs; Z79.4 Long term (current) use of insulin; R11.0 Nausea; F32.9 Major depressive disorder, single episode, unspecified; Z85.41 Personal history of malignant neoplasm of cervix uteri; Z87.891 Personal history of nicotine dependence
CPT/HCPCS: 71045; 80048; 82948; 83735; 84100; 85025; 86850; 86900; 86901; 88305; 88307; 88331; 88341; 88342; 94150; 94640; 94664; C9290; J0690; J1100; J1815; J1885; J2270; J2370; J2405; J2765; J3010; J3475; J3480; J7030; J7040; J7120; J7613